=== PATIENT | male | born 1945 | race Caucasian/White ===

== ENCOUNTER 2017-01-26 11:30 | Observation (INO) | payer MEDICARE, OTHER ==
[~2017-01-26] VITALS: Ht 177.8 cm; Wt 83.0 kg
--- NOTE | ~2017-01-26 | CT23 ---
[facility] A Service of [facility] & [facility] RADIOLOGY TEXT RESULTS PATIENT: SAMEERA HERNANDEZ LOCATION: [facility] 326-01 : 43 UNIT #: [id number] AGE: [address]: Cy Shearer MD SEX: M ORDER DR: [id number] [address] [address] [id number] I MR#: [id number] Acc #: [id number] NAME: SAMEERA HERNANDEZ. : 1945 SEX: M STUDY DATE/TIME: 01/27/2017 9:31 UNIT: [address] ROOM: [facility] STUDY DESCRIPTION: CT Angio Neck Attending Physician: Cy Shearer M.D. Ordering Physician: Marisa Fuentes M.D. Primary Care Physician: Primary Care Physician No MEDICAL IMAGING REPORT This report is preliminary unless electronic signature is present EXAM CT angiogram of the neck HISTORY FINDINGS Please see CT angiogram of the head for results. Dictated by... Caitie Marquez M.D. THIS IS AN ELECTRONICALLY VERIFIED REPORT Caitie Marquez M.D. at 01/27/2017 11:43 PM Smita TD: 01/27/2017 15:42 JOB #: [id number] MEDICAL IMAGING REPORT Page 1 of 1 COPY
--- NOTE | ~2017-01-26 | EKG ---
PATIENT: SAMEERA HERNANDEZ UNIT #: [id number] Ventricular Rate: 72 BPM Atrial Rate: 73 BPM QRS Duration: 90 ms Q-T Interval: 412 ms QTC Calculation(Bezet): 451 ms Calculated R Kenwood: 6 degrees Calculated T Kenwood: 29 degrees Diagnosis Line: Atrial fibrillation Diagnosis Line: Nonspecific T wave abnormality Diagnosis Line: Abnormal ECG Diagnosis Line: No previous ECGs available Diagnosis Line: Confirmed by RENAE DING MD ([id number]) on Diagnosis Line: 01/26/2017 8:30:43 PM INTERPRETING MD: KAMRON
--- NOTE | ~2017-01-26 | CO ---
Unit #: [id number] #: [id number] Patient: SAMEERA HERNANDEZ [id number] [facility] [address] [facility]. [place], [place] [address] [id number] I MR#: [id number] NAME: SAMEERA HERNANDEZ. ROOM: 326 Age: 71 Sex: M Admission Date: 01/26/2017 : 1945 Attending Physician: Cy Shearer M.D. Primary Care Physician: Primary Care Physician No Consultation Date: 01/27/2017 CONSULTATION REPORT PRIMARY CARE PHYSICIAN MD2U. REASON FOR CONSULTATION Stroke-like symptoms. PATIENT IDENTIFICATION This is a 71-year-old right-handed white male, who was evaluated in room 326 at [facility]. SOURCE OF INFORMATION The patient and evaluation done by Dr. Barajas. PROBLEM LIST 1. History of hypertension. 2. History of atrial fibrillation, but not on anticoagulation because of GI bleed. 3. Rectal mass. He is status post partial bowel resection with colostomy. HISTORY OF PRESENT ILLNESS This is a very pleasant 71-year-old gentleman, who actually presented yesterday around 1130 in the morning for episode of slurred speech noted by his early yesterday morning. The history is that this gentleman stays at home with his , but there are on different floors for some reason, and he is on ground floor, but she is upstairs. When she came down yesterday morning, she noticed that he had slurred speech and maybe some facial asymmetry and she told him it looks like he had a stroke and he wanted to come to the emergency room immediately. They came ambulatory to the emergency room, but when getting the history, it looks like the patient was having problem the night before because he says that when he was brushing his teeth, he could not spit it out, but he never made anything out of it. So initially code stroke was considered, but canceled. He was not a candidate for any intervention. He ended up with CT head, which showed some small vessel type changes and also in retrospect in area of decreased attenuation in the right frontal-opercular region, which is now being confirmed by MRI and that is an acute stroke and he has significant other strokes, which are old. His MRA shows possible artifact, but bilateral dropout in the middle cerebral artery territories cannot be absolutely ruled out, so the radiologist recommended CTA. Unit #: [id number] #: [id number] Patient: SAMEERA HERNANDEZ He takes aspirin. He does not take any lipid-lowering medication and he is not on any anticoagulation. He denies any change in medication noncompliance. PAST MEDICAL HISTORY As discussed above. PAST SURGICAL HISTORY As discussed above. ALLERGIES Penicillin. HOME MEDICATIONS Atenolol, aspirin, CoQ10, Probiotic, Flomax, vitamin B12, vitamin D3, lisinopril, fish oil, multivitamins. FAMILY HISTORY Reviewed and none. No stroke in young or other neurologic issues known to us. SOCIAL HISTORY He is . He lives in home with his . He denies tobacco, alcohol, or drug use. REVIEW OF SYSTEMS GENERAL: Detailed review of system was attempted. The patient denies any sleep issues, fever, chills, rigor, or sweats. HEENT: No headaches. Slurred speech is resolved. NECK: No neck pain. CARDIOVASCULAR: No chest pain, clubbing, cyanosis, orthopnea, or palpitation. PULMONARY: No shortness of air, cough, or expectoration. GASTROINTESTINAL: No nausea, vomiting, diarrhea, or constipation. GENITOURINARY: No genitourinary symptoms. EXTREMITIES: No other extremity problems. BACK: No back problem. PSYCHIATRIC: No psychiatric issue. NEUROLOGIC: No neurologic issue. No other hematologic, dermatologic, or endocrine problems known to me. PHYSICAL EXAMINATION VITAL SIGNS: Temperature 98.4, pulse 59, respirations 18, blood pressure 150/85. No pain was reported. O2 sats were 96% to 100%. Weight of 182 pounds. BMI was 26. His blood pressure was as high as 163 systolic and 117 diastolic. NEUROLOGIC: The patient is awake. He is alert. He is oriented except he thinks this is Thursday and is January. He can name and he can follow commands. No right or left confusion. No finger agnosia. I do not really see significant dysarthria. Cranial nerve examination demonstrates full gu of vision to confrontation. Eye movements are conjugate. I did not see any ptosis. I did not see any nystagmus. Extraocular movements are intact. Sensation Unit #: [id number] #: [id number] Patient: DAVID,SAMEERA F on the face and scalp are normal. Strength of muscles of facial expression normal. Hearing seemed to be intact bilaterally. Tongue was midline. Uvula was midline. Palate elevation was normal. Head turning and shoulder shrugs were unremarkable. Motor examination demonstrated normal bulk, tone. Strength was essentially 5/5. Sensory examination intact for soft touch and pain sensation. No extinction was seen. Romberg was not evaluated. Gait examination was deferred. I could not get any reflexes. Toes are mute. Coordination was normal. I did let him get up and walk, but he was sitting at the bedside chair and he apparently has been going to the bathroom and everything has been fine. DIAGNOSTIC STUDIES LABORATORY RESULTS: Random glucose was 112 and indirect bilirubin was 1.3. His LDL is 100. White count was 7.1; H and H of 16.7 and 47.2, it was 15.6 and 45.3 yesterday; platelet count was 163. IMAGING STUDIES: Reviewed personally and as discussed. IMPRESSION This is a very interesting 71-year-old gentleman, who has a new right frontal deep white matter/opercular type stroke. He may have abnormalities on MRA, but that may be an artifact. His risk factors so far are as hypertension, hyperlipidemia, and his age. He has atrial fibrillation, but there is nothing suggesting acute multiple embolic type phenomenon and he has had gastrointestinal bleed, so he would not be a good candidate for anticoagulation. I will do a full stroke workup and I do not think he needs PT/OT and rehab right now. He does not have any swallowing problems. I will check his 2D echo, his hemoglobin A1c, and check his CTA, and if it is okay, we will put him on Plavix and have him see Dr. Tate as outpatient. If there are further events or anticoagulation related issues, that need to be addressed. He is not a candidate for anticoagulation and stroke education and modification of stroke risk factor was discussed with him especially when his symptoms were the night before and I explained that to him and I will also explain that to him what multi-infarcts can do. Call me if any other questions, issues, or concerns. Dictated by... Marisa Fuentes M.D. TATIANNA/jarrod TD: 01/28/2017 02:23 JOB #: [id number] Unit #: [id number] #: [id number] Patient: SAMEERA HERNANDEZ CONSULTATION REPORT Page 1 of 1 X Marisa Fuentes MD CONSULTATION REPORT
--- NOTE | ~2017-01-26 | CT71 ---
[facility] A Service of [facility] RADIOLOGY TEXT RESULTS PATIENT: SAMEERA HERNANDEZ LOCATION: [facility] : 43 UNIT #: [id number] AGE: [address]: Cy Shearer MD SEX: M ORDER DR: [id number] [address] [address] [id number] I MR#: [id number] Acc #: [id number] NAME: SAMEERA HERNANDEZ. : 1945 SEX: M STUDY DATE/TIME: 01/26/2017 12:26 UNIT: [facility] PCU ROOM: [address] [place] [address] DESCRIPTION: CT Head Wo Contrast Attending Physician: Fatemeh Barajas M.D. Ordering Physician: Darinel Manzano M.D. MEDICAL IMAGING REPORT This report is preliminary unless electronic signature is present EXAM CT head without contrast INDICATIONS Slurred speech beginning at 08:30 today with right-sided facial weakness and numbness. TECHNIQUE Unenhanced CT of the head. This CT exam was performed with one or more of the following radiation dose reduction techniques: automatic exposure control, adjustment of mA and/or kV according to patient size, and iterative reconstruction. COMPARISON STUDIES None. FINDINGS No acute hemorrhage, abnormal mass effect, extraaxial fluid collection or hydrocephalus. There are areas of bilateral white matter low attenuation. No definitive evidence for an acute or early subacute large territory infarct. No calvarial fracture. Paranasal sinuses and mastoid air cells clear. IMPRESSION 1. No acute intracranial findings. 2. White matter low attenuation, nonspecific but probably sequelae of chronic small vessel ischemic change. 3. If there is ongoing clinical suspicion for an acute or early subacute infarct, brain MRI would be helpful. [facility] A Service [facility] RADIOLOGY TEXT RESULTS PATIENT: SAMEERA HERNANDEZ LOCATION: [facility] : 43 UNIT #: [id number] AGE: [address]: Cy Shearer MD SEX: M ORDER DR: Dictated by... Brandin Witt M.D. THIS IS AN ELECTRONICALLY VERIFIED REPORT Brandin Witt M.D. at 01/27/2017 8:29 AM EED/pcl TD: 01/26/2017 21:20 JOB #: [id number] MEDICAL IMAGING REPORT Page 1 of 1 COPY
--- NOTE | ~2017-01-26 | MR134 ---
[facility] Service of [facility] RADIOLOGY TEXT RESULTS PATIENT: SAMEERA HERNANDEZ LOCATION: [facility] 326-01 : 43 UNIT #: [id number] AGE: [address]: Cy Shearer MD SEX: M ORDER DR: [id number] [facility] [address] [facility]. [place], [place] [address] [id number] I MR#: [id number] Acc #: [id number] NAME: SAMEERA HERNANDEZ : 1945 SEX: M STUDY DATE/TIME: 01/26/2017 17:17 UNIT: [address] ROOM: [facility] STUDY DESCRIPTION: MR MRA Neck Wo Contrast Attending Physician: Cy Shearer M.D. Ordering Physician: Fatemeh Barajas M.D. Primary Care Physician: Primary Care Physician No MRI CENTER REPORT This report is preliminary unless electronic signature is present. EXAM MR angiogram of the neck without contrast COMPARISON MRI brain and MRA head dated 01/26/2017. HISTORY Slurred speech which was noticed at 0830 hours today. Right side face drawn up. Patient could not spit after brushing teeth today. Left sided droop. FINDINGS Source and 3-D reconstruction MIP images of the neck arteries were obtained without contrast. Three-vessel aortic arch is seen. Motion artifact is noted in multiple images limiting evaluation. After giving allowances to motion, bilateral common and external carotid arteries appear to be grossly unremarkable. There is some heterogeneity of signal noted in the posterolateral aspect of bilateral internal carotid artery bulbs, worse on the left when compared to the right. There is no significant distal flow limitation. Left vertebral artery is dominant. Bilateral vertebral arteries demonstrate expected course, caliber and flow. The origins are barely visualized. No obvious aneurysm. IMPRESSION 1. There is heterogeneity of signal noted in the posterior aspect of bilateral internal carotid artery bulbs, worse on the left. It is probably flow related to turbulence and/or mild plaque. No significant stenosis is suspected as I presume it is predominately to be flow turbulence. When head CTA head is obtained to evaluate the bilateral middle cerebral arteries as mentioned in the MRA head, CTA neck can also be obtained to confirm that there is no significant stenosis and the left internal carotid artery per NASCET criteria. 2. No aneurysm or AVM. [facility] A Service of [facility] & [facility] RADIOLOGY TEXT RESULTS PATIENT: SAMEERA HERNANDEZ LOCATION: [facility] 326-01 : 43 UNIT #: [id number] AGE: [address]: Cy Shearer MD SEX: M ORDER DR: Dictated by... Corrie Sheriff M.D. THIS IS AN ELECTRONICALLY VERIFIED REPORT Corrie Sheriff M.D. at 01/29/2017 1:16 PM CPR/sugar TD: 01/27/2017 09:36 JOB #: [id number] MRI CENTER REPORT Page 1 of 1 COPY
--- NOTE | ~2017-01-26 | HP ---
Unit #: [id number] #: [id number] Patient: SAMEERA HERNANDEZ [id number] [address] [address] [id number] MR#: [id number] NAME: SAMEERA HERNANDEZ ROOM: Age: 71 Sex: M Admission Date: 01/26/2017 : 1945 Attending Physician: Darinel Manzano M.D. HISTORY AND PHYSICAL CHIEF COMPLAINT Slurred speech. HISTORY OF PRESENT ILLNESS The patient is a 71-year-old male with a history of atrial fibrillation, not on anticoagulation secondary to GI bleed, status post partial bowel resection with colostomy on June 11, 2013, for rectal mass, brought to the emergency room complaining of slurring of speech. The patient stated that patient was trying to brush his teeth last night and was unable to (1) out. The patient stated that the patient was having a hard time for sleep, and when he woke up this morning, his speech was slurred, and the brought the patient to the hospital. The patient denies any headache, chest pain, diaphoresis, nausea, or vomiting. The patient's droop has been getting better in the last few hours. A Code Stroke was called for the patient, and as the patient was out of the range for TPA, the Code Stroke was cancelled. CT of the head shows chronic small vessel changes and no acute findings. The patient is being admitted for the above reasons. PAST MEDICAL HISTORY 1. Hypertension. 2. Atrial fibrillation. 3. Rectal mass. PAST SURGICAL HISTORY Partial bowel resection with colostomy. SOCIAL HISTORY No history of smoking, alcohol, or any illicit drug abuse. FAMILY HISTORY Reviewed and none. ALLERGIES Penicillin. HOME MEDICATIONS 1. Atenolol. 2. Aspirin. 3. CoQ10. 4. Probiotic. 5. Flomax. 6. Vitamin B12. 7. Vitamin D3. Unit #: [id number] #: [id number] Patient: SAMEERA HERNANDEZ 8. Lisinopril. 9. Fish oil. 10. Multivitamins. REVIEW OF SYSTEMS Only pertinent positive findings are described above. All other systems were reviewed and none. PHYSICAL EXAMINATION GENERAL: Patient is lying in bed not in acute distress. VITAL SIGNS: Temperature 97.5, pulse 63, respiratory rate 18, blood pressure 162/109, and saturating 100% on room air. HEENT: Head atraumatic, normocephalic. Pupils equal, round, and reactive to light and accommodation. Extraocular movements are intact. NECK: Supple. LUNGS: Decreased air entry at the bases. HEART: Irregular rate and rhythm. Positive for murmur. ABDOMEN: Soft. Positive bowel sounds. Patient has colostomy tube. EXTREMITIES: No cyanosis, no clubbing. NEUROLOGIC: Alert, awake, and oriented. No gross focal motor deficit. DIAGNOSTIC STUDIES LABORATORY: Glucose 105. WBC 5.9, hemoglobin 15.6, hematocrit 45.3, and platelets 170,000. Troponin less than 0.05. INR is 1.2. Sodium 134, potassium 4, chloride 101, bicarb 27, glucose 112, BUN 17, creatinine 1.1, AST 20, ALT 17, and albumin 4.4. IMAGING: CT of (2) shows chronic small vessel changes. CARDIOLOGY: EKG shows atrial fibrillation and nonspecific T-wave abnormalities. ASSESSMENT 1. Transient ischemic attack. 2. Atrial fibrillation. 3. Hypertension. PLAN Admit the patient to observation. Patient will have a Neurology consult. Check an MRI of the brain without contrast and check echocardiogram and serial troponins. Further recommendations will follow. Dictated by Clare Juarez/nirmala TD: 01/26/2017 15:59 JOB #: [id number] Unit #: [id number] #: [id number] Patient: SAMEERA HERNANDEZ HISTORY AND PHYSICAL Page 1 of 1 X GERMAINE LEAHY MD X HISTORY AND PHYSICAL
--- NOTE | ~2017-01-26 | MR17 ---
[facility] A Service of [facility] & [facility] RADIOLOGY TEXT RESULTS PATIENT: SAMEERA HERNANDEZ LOCATION: [facility] 326-01 : 43 UNIT #: [id number] AGE: [address]: Cy Shearer MD SEX: M ORDER DR: [id number] [facility] [address] [facility]. [place], [place] [address] [id number] I MR#: [id number] Acc #: [id number] NAME: SAMEERA HERNANDEZ : 1945 SEX: M STUDY DATE/TIME: 01/26/2017 16:48 UNIT: [address] ROOM: [facility] STUDY DESCRIPTION: MR Brain WWo Contrast Attending Physician: Cy Shearer M.D. Ordering Physician: Fatemeh Barajas M.D. Primary Care Physician: Primary Care Physician No MRI CENTER REPORT This report is preliminary unless electronic signature is present. EXAM MRI of the brain with and without contrast dated 01/26/2017 COMPARISON MRA head and neck dated 01/26/2017, CT head without contrast dated 01/26/2017. HISTORY Slurred speech, at 08:30 hours today(01/26/2017). Right side of face was drawn up. Patient could not spit after brushing teeth. Left-sided droop. FINDINGS Multisequence multiplanar imaging of the brain was obtained with and without contrast. GFR measured greater than 60. 17 mL of MultiHance was administered intravenously. Nonenhancing scattered multiple hyperintense T2-signal lesions are noted in the subcortical and periventricular white matter with punctate suspicious tiny one or two foci in the shawn. There is a restricted diffusion 2.8 x 2.0 cm lesion in the right frontal operculum extending to the anterior aspect of the right sylvian fissure and adjacent superior and anterior right insular cortex. No associated enhancement or hemorrhage is seen. There is mild associated edema with minimal increased T2 signal in this region. No hydrocephalus. IMPRESSION 1. Acute non-hemorrhagic 2.8 x 2.0 cm infarct is seen in the right frontal lobe predominately in the operculum. It extends to the anterior aspect of the superior right sylvian fissure and adjacent right insular cortex. 2. Scattered multiple hyperintense T2-signal lesions are noted in the brain, likely related to moderate chronic microvascular ischemic change based on age and statistics. 3. No hydrocephalus or midline shift. 4. Attempts are made to contact referring this physician Dr. Weinstein at [facility] A Service of [facility] & [facility] RADIOLOGY TEXT RESULTS PATIENT: SAMEERA HERNANDEZ LOCATION: [facility] 326-01 : 43 UNIT #: [id number] AGE: [address]: Cy Shearer MD SEX: M ORDER DR: 06:00 p.m. on 01/26/2017. The technologist contacted all the referring physicians during the time of acquisition of MRI brain to add MR angiogram head and neck at my suggestion. Dictated by... Corrie Sheriff M.D. THIS IS AN ELECTRONICALLY VERIFIED REPORT Corrie Sheriff M.D. at 01/29/2017 1:16 PM CPR/raquel TD: 01/27/2017 09:30 JOB #: [id number] MRI CENTER REPORT Page 1 of 1 COPY
--- NOTE | ~2017-01-26 | DS ---
Unit #: [id number] #: [id number] Patient: SAMEERA HERNANDEZ [id number] [facility]. [place], [place] [address] [id number] I MR#: [id number] NAME: SAMEERA HERNANDEZ. ROOM: 326 Age: 71 Sex: M Admission Date: 01/26/2017 : 1945 Discharge Date: 01/27/2017 Attending Physician: Cy Shearer M.D. Primary Care Physician: No Primary Care Physician DISCHARGE SUMMARY Primary care provider is DENIS. Primary head animal keeper is Dr. Schuler. PRINCIPAL DIAGNOSES 1. Acute right frontal lobe cerebrovascular accident, likely embolic. Fortunately, no long deficit. 2. Chronic atrial fibrillation, previously intolerant to group home anticoagulation. 3. Hypertension. 4. Hyperlipidemia. 5. History of rectal cancer, status post resection with colostomy placement. 6. Benign prostatic hypertrophy. 7. Moderate mitral regurgitation, severe tricuspid regurgitation, moderate to severe pulmonary hypertension. 8. Polycythemia. CONSULTANTS Dr. Fuentes - Neurology. PROCEDURES 1. Two dimensional echocardiogram on January 27, 2017, with ejection fraction of 55% to 60%. Moderate mitral regurgitation, severe tricuspid regurgitation. Moderate to severe pulmonary hypertension noted. Bubble study was normal. 2. CT of the head without contrast on January 26, 2017, with right matter low attenuation consistent with chronic small vessel disease. No acute intracranial findings. 3. MRI of the brain with and without contrast on January 26, 2017, with an acute non-hemorrhagic 2.8 x 2.0 cm infarct in the right frontal lobe, primarily in the operculum. Extends to the anterior aspect of the superior right sylvian fissure and adjacent right insular cortex. Scattered multiple hyperintense T2-signal lesions in the brain. 4. MRA of head and neck on January 26, 2017 - there is signal drop noted in the bilateral M1 segments of the middle cerebral arteries, worse on the right compared to left. Extends into the right MCA trifurcation and proximal portions of the branch vessels. It appears artifactual primarily. Mild stenosis cannot be ruled out. Right vertebral artery is uniformly decreased caliber at the V4 segment. No aneurysm or AVMs. Heterogeneity of the posterior aspects of bilateral internal carotid artery bulbs noted, worse on the left, likely secondary to mild plaque stenosis. 5. CT angiogram of head and neck which is currently pending. CLINICAL HISTORY/HOSPITAL COURSE Unit #: [id number] #: [id number] Patient: SAMEERA HERNANDEZ is a very nice 71-year-old male with a history of chronic atrial fibrillation with a history of GI bleed secondary to anticoagulation. She presents with facial droop and slurred speech. The patient is not deemed a tPA candidate given duration of symptoms prior to presentation. CT scan of the head in the emergency department is unremarkable and patient was admitted to rule out TIA. Dr. Fuentes was consulted. MRI was done and did, indeed, reveal stroke but, unfortunately, at this point, patient is completely asymptomatic. His facial droop and slurred speech have completely resolved. I had an extensive discussion with the patient given his chronic atrial fibrillation which I suspect is somewhat related to his underlying stroke. However, I will note patient does have some mild stenosis on MRA and CT angiogram of the head and neck is done but results are currently pending. Patient is bleeding on warfarin previously prior to him being documented with rectal cancer. He informs me Dr. Schuler, his primary head animal keeper, discussed reinitiation of Coumadin upon resection of his rectal mass and subsequent colostomy but patient is afraid to restart anticoagulation. However, again, I have discussed with patient. I am concerned his stroke is secondary to his A-fib. I have discussed with him the risks and benefits of Eliquis, particularly that it doesn't require any drug levels and the studies indicate it has less bleeding than Coumadin and patient is willing to try it. Thus, we are going to initiate Eliquis and if patient has any bleeding he, of course can present to the ER and we can further discuss anticoagulation. The patient is absolutely agreeable to this plan and we will initiate Eliquis. The patient's other chronic issues remain stable. He does have some valvular abnormality on echo and this can be followed up by Dr. Schuler as an outpatient. Again, will follow up on CTA but, assuming no significant stenosis, patient will be discharged home later today. DISCHARGE CONDITION Stable. DISCHARGE STATUS Discharge to home. DISCHARGE MEDICATIONS 1. Eliquis 5 mg p.o. b.i.d. 2. Flomax 0.4 mg daily. 3. Lactobacillus acidophilus capsule, one tablet daily. 4. Atenolol 50 mg b.i.d. 5. Lipitor 30 mg at bedtime with two refills. 6. Finasteride 5 mg daily. 7. Co Q-10 200 mg daily. 8. A daily multivitamin. 9. Vitamin B/vitamin B12 complex, one daily. 10. Vitamin D3 4000 units p.o. daily. 11. Fish oil 1200 mg daily. DISCHARGE INSTRUCTIONS The patient was instructed to follow a heart health diet. He can increase his activity as tolerated. FOLLOWUP Unit #: [id number] #: [id number] Patient: SAMEERA HERNANDEZ The patient will follow up with Dr. Shree Tate of (1) neurology in four weeks. Patient should follow up with Dr. Schuler in four weeks as well. Can re-evaluate Eliquis and follow up on hemoglobin. Time spent on discharge today - 48 minutes. Dictated by... Barbara Yoon M.D. DENNY/hannah TD: 01/29/2017 11:36 JOB #: [id number] DISCHARGE SUMMARY Page 1 of 1 X Barbara Yoon MD X DISCHARGE SUMMARY
--- NOTE | ~2017-01-26 | DS ---
Unit #: [id number] #: [id number] Patient: SAMEERA HERNANDEZ [id number] [address] [id number] I MR#: [id number] NAME: SAMEERA HERNANDEZ. ROOM: [facility] Age: 71 Sex: M Admission Date: 01/26/2017 : 1945 Discharge Date: 01/27/2017 Attending Physician: Cy Shearer M.D. Primary Care Physician: No Primary Care Physician DISCHARGE SUMMARY ADDENDUM Please note - patient's CT angiogram of the head and neck returned with hemodynamically significant stenosis of the left vertebral artery. This was discussed with Dr. Fuentes. While this needs to be addressed on an outpatient basis, it is not related to patient's current stroke. Patient will follow up with [facility] Stroke Team. An appointment will be made prior to discharge. Patient will need evaluation for intervention at [facility]. This has been discussed with the patient via nursing. Dictated by... Barbara Yoon M.D. DENNY/hannah TD: 01/29/2017 12:11 JOB #: [id number] DISCHARGE SUMMARY Page 1 of 1 X Barbara Yoon MD X DISCHARGE SUMMARY
--- NOTE | ~2017-01-26 | MR122 ---
[facility] A Service of [facility] & [facility] RADIOLOGY TEXT RESULTS PATIENT: SAMEERA HERNANDEZ LOCATION: [facility] 326- : 43 UNIT #: [id number] AGE: [address]: Cy Shearer MD SEX: M ORDER DR: [id number] [facility] [address] [place], [place] [address] [id number] I MR#: [id number] Acc #: [id number] NAME: SAMEERA HERNANDEZ : 1945 SEX: M STUDY DATE/TIME: 01/26/2017 17:04 UNIT: [address] ROOM: [facility] STUDY DESCRIPTION: MR MRA Head Wo Contrast Attending Physician: Cy Shearer M.D. Ordering Physician: Fatemeh Barajas M.D. Primary Care Physician: Primary Care Physician No MRI CENTER REPORT This report is preliminary unless electronic signature is present. EXAM MR angiogram of the head without contrast dated 01/26/2017 COMPARISON MRI brain and MRA neck dated 01/26/2017. HISTORY Slurred speech was noted from 0830 hours today (01/26/2017). Patient could not spit after brushing teeth. Right side of the face was drawn up. Left-sided facial droop was seen. FINDINGS Source and 3-D reconstruction MIP images of the [place] of [place] was obtained without contrast. The left internal carotid artery is minimally smaller when compared to the right. It is however uniform throughout its course intracranially. Bilateral anterior and middle cerebral arteries demonstrate some signal drop due to motion artifact. There is however faint signal noted in bilateral M1 segments. No significant thrombus is believed to be present in the vessel. Mild narrowing of right M1 segment cannot be completely excluded but it is probably predominantly artifactual. No distal asymmetrical significant decrease in flow is seen. Basilar artery, bilateral visualized proximal posterior cerebral arteries are unremarkable. Dominant left vertebral artery predominantly feeds it. Right vertebral artery is hypoplastic and it further decreases in caliber after the takeoff of the right PICA. No obvious aneurysm or AVM is seen. IMPRESSION 1. The study is limited despite repeats. There is signal drop noted in bilateral M1 segments of the middle cerebral arteries, worse on the right when compared to the left. It extends into the right MCA trifurcation and the proximal portions of the branch vessels. It predominantly appears to be artifactual given faint flow with STS. [facility] A Service of [facility] & [facility] RADIOLOGY TEXT RESULTS PATIENT: SAMEERA HERNANDEZ LOCATION: [facility] 326-01 : 43 UNIT #: [id number] AGE: [address]: Cy Shearer MD SEX: M ORDER DR: relatively normal caliber. Mild stenosis cannot be completely excluded. Given the known acute stroke, CT angiogram of the head and neck would be further helpful in characterizing it. 2. The right vertebral artery is of uniformly decreased caliber in the V4 segment. It is probably decreased following takeoff of the right PICA. No irregularity is noted in the vessel to suggest atherosclerotic disease. 3. No aneurysm or AVM. Dictated by... Corrie Sheriff M.D. THIS IS AN ELECTRONICALLY VERIFIED REPORT Corrie Sheriff M.D. at 01/29/2017 1:16 PM CPR/cedric TD: 01/27/2017 09:36 JOB #: [id number] MRI CENTER REPORT Page 1 of 1 COPY
[~2017-01-26 11:30] MED LIST: AMLODIPINE BESYL5 MG PO; ASPIRIN PO; ASPIRIN81 M2 PO; ATENOLOL PO; BIOTIN 800 MCG1 EACH PO; CO Q-10200 MG PO; COUMADIN PO; COUMADIN4 MG PO; CRANBERRY500 M1 PO; FISH OIL 1,0001 CA2 PO; FISH OIL 1,0001 EAC1 PO; FLOMAX0.4 M1 PO; GLUCOSAMINE PO; LISINOPRIL5 MG PO; MULTI VITAMIN1 EACH PO; MULTI-VITAMIN1 TAB PO; OSTEO BIFLEX; PROBIOTIC1 EAC1 PO; PROPECIA1 MG PO; PUMPKIN SEED OIL; SAW PALMETTA; SAW PALMETTO160 M1 PO; VITAMIN D PO; VITAMIN D33000 UNIT PO
[2017-01-26 12:17] LABS: BASOPHIL% 0.4 % (0-2.5); DIFF IND NO; EOSINOPHIL% 0.6 % (0.0-7.0); HEMATOCRIT 45.3 % (38.0-50.0); HEMOGLOBIN 15.6 gm/dL (13.0-16.0); LYMPHOCYTE# 0.9 X10e3 (1.0-3.5); LYMPHOCYTE% 15.1 % (17.0-45.0); MEAN CELL VOLUME 90.6 FL (83-96); MEAN CORPUSCULAR HEMOGLOBIN 31.3 PG (28-34); MEAN CORPUSCULAR HGB CONC 34.5 g/dL (30-36); MEAN PLATELET VOLUME 6.9 FL (6.5-11.5); MONOCYTE# 0.5 X10e3 (0-1.0); MONOCYTE% 8.7 % (3.0-12.0); NEUTROPHIL# 4.4 X10e3 (1.5-7.1); NEUTROPHIL% 75.2 % (40-75); PLATELET COUNT 170 X10e3 (140-420); RED CELL DISTRIBUTION WIDTH 14.3 % (11.0-15.5); WHITE BLOOD COUNT 5.9 X10e3 (4.0-10.5)
[2017-01-26 12:29] LABS: POC - CKMB 1.5 ng/mL (0.0-7.9); POC - TROPONIN <0.05 ng/mL (<=0.05)
[2017-01-26 12:34] LABS: INR 1.2; PARTIAL THROMBOPLASTIN TIME 26.6 SECONDS (23.5-31.3); PROTHROMBIN TIME (PATIENT) 12.6 SECONDS (10.0-11.7)
[2017-01-26 12:54] LABS: ALBUMIN SERUM 4.4 g/dL (3.5-5.0); BILIRUBIN, DIRECT 0.2 mg/dL (0.0-0.2); BILIRUBIN,INDIRECT 1.3 mg/dL (0.0-0.9); BILIRUBIN,TOTAL 1.5 mg/dL (0.2-2.0); BUN/CREATININE RATIO 15.45; CALCIUM SERUM 9.1 mg/dL (8.4-10.2); CREATININE SERUM 1.1 mg/dL (0.6-1.4); GLOM FILT RATE Estimated 66.3 mL/min (>60); PROTEIN TOTAL SERUM 7.3 g/dL (6.0-8.3)
[2017-01-26] MEDS ORDERED: ATENOLOL50 MG PO (13:56)
[2017-01-26] MEDS ORDERED: CO Q-10200 MG PO (13:57)
[2017-01-26] MEDS ORDERED: ASPIRIN81 MG PO (13:57)
[2017-01-26] MEDS ORDERED: PROBIOTIC1 EAC1 PO (13:59)
[2017-01-26] MEDS ORDERED: FLOMAX0.4 M1 PO (13:59)
[2017-01-26] MEDS ORDERED: B-COMPLEX-VITA1 EACH PO (14:00)
[2017-01-26] MEDS ORDERED: LISINOPRIL10 MG PO (14:00)
[2017-01-26] MEDS ORDERED: VITAMIN D34000 UNIT PO (14:00)
[2017-01-26] MEDS ORDERED: FISH OIL 1,2001 EAC1 PO (14:01)
[2017-01-26] MEDS ORDERED: FINASTERIDE5 M1 PO (14:02)
[2017-01-26] MEDS ORDERED: MULTI VITAMIN1 EACH PO (14:02)
[2017-01-26 16:40] LABS: CHOLESTEROL 159 mg/dL (0-200); HDL CHOLESTEROL 37 mg/dL (29-75); LDL CHOLESTEROL 100 mg/dL (-130); LDL/HDL RATIO 3 RATIO (0-4); TRIGLYCERIDES 112 mg/dL (10-160)
[2017-01-27 04:13] LABS: HEMATOCRIT 47.2 % (38.0-50.0); HEMOGLOBIN 16.7 gm/dL (13.0-16.0); MEAN CORPUSCULAR HEMOGLOBIN 31.8 PG (28-34); MEAN CORPUSCULAR HGB CONC 35.3 g/dL (30-36); MEAN PLATELET VOLUME 6.6 FL (6.5-11.5); RED BLOOD COUNT 5.24 X10e (3.90-5.60); RED CELL DISTRIBUTION WIDTH 14.1 % (11.0-15.5); WHITE BLOOD COUNT 7.1 X10e3 (4.0-10.5)
[2017-01-27 04:52] LABS: BUN/CREATININE RATIO 22.5; CALCIUM SERUM 9.3 mg/dL (8.4-10.2); CREATININE SERUM 0.8 mg/dL (0.6-1.4); GLOM FILT RATE Estimated 88.7 mL/min (>60); POTASSIUM 3.8 mmol/L (3.5-5.1)
[2017-01-27 09:16] LABS: CHOLESTEROL 175 mg/dL (0-200); HDL CHOLESTEROL 40 mg/dL (29-75); LDL CHOLESTEROL 108 mg/dL (-130); LDL/HDL RATIO 3 RATIO (0-4); TRIGLYCERIDES 135 mg/dL (10-160)
[2017-01-27] MEDS ORDERED: ELIQUIS5 MG PO (17:51)
[2017-01-27] MEDS ORDERED: LIPITOR40 MG PO (17:52)
[2017-01-27] MEDS ORDERED: OMEGA 3 1,0001 EACH PO (18:28)
== END 2017-01-27 18:35 | disposition home or self-care (01) ==
LOC: CED 11:30 → CEDOF 14:55 → CED 17:39 → CEDOF 17:39 → C3A PCU 17:39 → CEDOF 19:50 → C3A PCU 19:50
PROVIDERS: Emergency Medicine; Internal Medicine; Psychiatry & Neurology Neurology
DX: I63.9 Cerebral infarction, unspecified (principal); I48.2 Chronic atrial fibrillation; I10 Essential (primary) hypertension; E78.5 Hyperlipidemia, unspecified; Z85.048 Personal history of other malignant neoplasm of rectum, rectosigmoid junction, and anus; Z93.3 Colostomy status; N40.0 Benign prostatic hyperplasia without lower urinary tract symptoms; I08.1 Rheumatic disorders of both mitral and tricuspid valves; I27.2 Other secondary pulmonary hypertension; D75.1 Secondary polycythemia
CPT/HCPCS: 70450; 70496; 70498; 70544; 70547; 70553; 80048; 80061; 80076; 82553; 82947; 83036; 84484; 85025; 85027; 85610; 85730; 86140; 93005; 93306; 94760; 99285; A9577; G0378; Q9967